=== PATIENT | male | born 1980 | race American Indian/Alaskan Native ===

== ENCOUNTER 2019-10-21 09:37 | Emergency (ER) | payer SELFPAY ==
[2019-10-21] MEDS ORDERED: IPRATROPIUM/ALBUTEROL SULFATE 3 ML AMPUL.NEB IH ONE (11:13)
[2019-10-21] MEDS ORDERED: predniSONE 20 MG TAB PO ONE (11:13)
--- NOTE | 2019-10-21 11:37 | XRay Report ---
CHEST 2 VIEWS INDICATION / CLINICAL INFORMATION: cough. COMPARISON: None available. FINDINGS: SUPPORT DEVICES: None. HEART / MEDIASTINUM: No significant abnormality. LUNGS / PLEURA: No significant pulmonary or pleural abnormality. No pneumothorax. ADDITIONAL FINDINGS: No significant additional findings. IMPRESSION: 1. No acute findings. Signer Name: Ellis Cabezas MD Signed: 10/21/2019 11:33 AM Workstation Name: [id number]
--- NOTE | 2019-10-21 11:49 | Emergency Department Report ---
Minor Respiratory - HPI Chief Complaint: Upper Respiratory Infection Stated Complaint: COUGH/CHEST PAIN Time Seen by Provider: 10/21/19 10:57 Duration: 2 Days Pain Location: Chest Severity: mild Minor Respiratory: Yes Able to Tolerate Fluids, Yes Cough, No Rhinorrhea, No Sore Throat, No Ear Pain, No Sick Contacts, No Hemoptysis, No Chest Pain, No Shortness of Breath, No Fever Other History: Patient is a 39-year-old -[place] male who comes to the ER complaining of cough and congestion for 2 days. He states that he coughs so hard that he vomits. Cough is without purulent sputum. Patient denies any fever chills or recent travel. He denies any exposure to persons with known illness. He is a cigarette smoker. Patient's blood pressure was noted to be elevated on admission he states that he has never been told he had hypertension. However, he does note that when he sees a doctor his blood pressure goes up. His heart rate is also 116. However, the patient is [id number] and has no fever. He is walking without shortness of breath or chest pain. Patient denies any medical history or any daily medications. On exam patient has mild wheezing. He will be sent for an x-ray to rule out consolidation. ED Review of Systems ROS: Stated complaint: COUGH/CHEST PAIN Other details as noted in HPI Comment: All other systems reviewed and negative ED Past Medical Hx - Past Medical History Previous Medical History?: No - Surgical History Past Surgical History?: No - Family History Family history: no significant - Social History Smoking Status: Current Every Day Smoker Substance Use Type: None - Medications Home Medications: Home Medications Medication Instructions Recorded Confirmed Last Taken Type Benzonatate [Tessalon Perles] 100 mg PO Q12H PRN #20 capsule 10/21/19 Unknown Rx Cetirizine HCl [ZyrTEC] 10 mg PO DAILY #30 capsule 10/21/19 Unknown Rx Fluticasone [Flonase] 1 spray NS QDAY #1 bottle 10/21/19 Unknown Rx predniSONE [Deltasone] 20 mg PO DAILY #5 tablet 10/21/19 Unknown Rx Minor Respiratory Exam - Exam General: Vital signs noted. No distress. Alert and acting appropriately. HEENT: Yes Moist Mucous Membranes, No Pharyngeal Erythema, No Pharyngeal Exudates, No Rhinorrhea, No Conjuctival Injection, No Frontal Tenderness, No Maxillary Tenderness Ear: Neither TM Bulge, Neither TM Erythema, Neither EAC Pain, Neither EAC Discharge Neck: Yes Supple, No Adenopathy Lungs: Yes Good Air Exchange, Yes Wheezes, No Ronchi, No Stridor, No Cough, No Labored Respirations, No Retractions, No Use of Accessory Muscles, No Other Abnormal Lung Sounds Heart: Yes Regular (100 bpm), No Murmur Abdomen: Yes Normal Bowel Sounds, No Tenderness, No Peritoneal Signs Skin: No Rash, No Edema Neurologic: Alert and oriented, no deficits. Musculoskeletal: Unremarkable. ED Course Vital Signs 10/21/19 09:42 Temperature 98.0 F Pulse Rate 116 H Respiratory 16 Rate Blood Pressure 163/109 O2 Sat by Pulse 94 Oximetry ED Medical Decision Making - Radiology Data Radiology results: report reviewed, image reviewed No acute process - Medical Decision Making X-ray noted. No fever or purulent sputum. Wheezing on exam improved with DuoNeb and prednisone. Patient nontoxic and [id number]. No shortness of breath or chest pain Patient educated on monitoring his blood pressure. He will be given a referral to primary care to do so. Patient being discharged from ER with PCP follow-up. - Differential Diagnosis Rule out pneumonia, acute bronchitis Critical care attestation.: If time is entered above; I have spent that time in minutes in the direct care of this critically ill patient, excluding procedure time. ED Disposition Clinical Impression: Acute bronchitis Disposition: DC-01 TO HOME OR SELFCARE Is pt being admited?: No Does the pt Need Aspirin: No Condition: Stable Instructions: Acute Bronchitis (ED) Additional Instructions: Medications as ordered today. Follow-up with primary care as we discussed. There is a referral below. Return to the ER for shortness of breath associated with fever. Monitor your blood pressure. Good handwashing and minimize exposure to public given current viral outbreak. Referrals: TOBIAS BARRAGAN MD [Staff Physician] - 3-5 Days Time of Disposition: 11:47
[2019-10-21 12:13] VITALS: BP 157/109
== END 2019-10-21 12:25 | disposition home or self-care (01) ==
LOC: ED 09:37
DX: J20.9 Acute bronchitis, unspecified (principal); F17.200 Nicotine dependence, unspecified, uncomplicated; Z79.899 Other long term (current) drug therapy
CPT/HCPCS: 71046; 94640; 99283; J7512